=== PATIENT | female | born 1990 | race African-American/Black ===

== ENCOUNTER 2017-02-07 13:33 | Outpatient (CLI) | payer BC ==
[~2017-02-07] VITALS: Ht 167.6 cm; Wt 116.3 kg
[2017-02-07] MEDS ORDERED: ACETAMINOPHEN 500 MG TABLET PO ONE (14:15)
[2017-02-07] MEDS ORDERED: LR 1,000 ML IV SCH ×2 (14:15→15:15)
[2017-02-07 14:22] LABS: INFLUENZA A AG SCREEN NEGATIVE (NEGATIVE); INFLUENZA B AG SCREEN NEGATIVE (NEGATIVE)
[2017-02-07 14:32] VITALS: Ht 167.6 cm; Wt 116.3 kg
[2017-02-07 14:41] VITALS: BP 146/94; PULSE 106; RESP 16; TEMP 98.8; O2SAT 97
== END 2017-02-07 18:00 | disposition home or self-care (01) ==
LOC: INF.THER 13:33
PROVIDERS: ATTEND Obstetrics & Gynecology
DX: E86.0 Dehydration (principal)
CPT/HCPCS: 87400; J7120

== ENCOUNTER 2017-03-14 09:03 | Inpatient (IN) | payer BC ==
[~2017-03-14] VITALS: Ht 167.6 cm; Wt 118.1 kg
[~2017-03-14 09:03] MED LIST: PREN1TAB73 PO
[2017-03-14] MEDS ORDERED: LR 1,000 ML IV PRN (09:25)
[2017-03-14] MEDS ORDERED: LIDOCAINE 1% (10mg/ml) 2ml SDV ID PRN (09:30)
[2017-03-14] MEDS ORDERED: MAG-AL + SIM LIQUID 30 ML UDC PO PRN (09:30)
[2017-03-14] MEDS ORDERED: ACETAMINOPHEN 500 MG TABLET PO PRN (09:30)
[2017-03-14] MEDS ORDERED: CALCIUM CARBONATE 500mg Chewable TAB PO PRN (09:30)
[2017-03-14 09:40] LABS: HCT - HEMATOCRIT 40.3 % (36-46); HGB - HEMOGLOBIN 13.1 GM/DL (12-16); MEAN CORPUSCULAR HGB 28.1 UUG (26-34); MEAN CORPUSCULAR HGB CONC(MCHC 32.5 GM/DL (31-37); MEAN CORPUSCULAR VOLUME 86.5 UM3 (80-100); MEAN PLATELET VOLUME 11.1 UM3 (9.4-12.4); RED BLOOD COUNT 4.66 M/MM3 (4.00-5.20); WBC - WHITE BLOOD COUNT 14.9 T/MM3 (4.5-11.0)
[2017-03-14 10:20] VITALS: BP 135/66; PULSE 92; RESP 18
[2017-03-14] MEDS ORDERED: OXYTOCIN 30 UNIT in D5W 500 ML IV ONE (10:57)
[2017-03-14] MEDS ORDERED: MILK OF MAGNESIA 30 ML SUSP PO PRN (11:00)
[2017-03-14] MEDS ORDERED: DiphenhydrAMINE 25 MG CAPSULE PO PRN (11:00)
[2017-03-14] MEDS ORDERED: PHENYLEPHRINE RECTAL SUPPOSITORY RECTALLY PRN (11:00)
[2017-03-14] MEDS ORDERED: HYDROCORTISONE 2.5% CREAM 30 GM RECTALLY PRN (11:00)
[2017-03-14] MEDS ORDERED: ROPIVACAINE 1% 200 MG, SUFENTANIL 50 MCG in NORMAL SALINE 80 ML EPI ONE (12:00)
[2017-03-14] MEDS: IBUPROFEN 800 MG TABLET PO PRN (15:10)
[2017-03-14] MEDS: HYDROCODONE/APAP 5 mg/325 mg TABLET PO PRN ×2 (15:11→20:14)
[2017-03-14 15:20] VITALS: BP 124/70; PULSE 92; RESP 18; TEMP 98.2
[2017-03-14 17:54] VITALS: BP 135/67; PULSE 86; RESP 18; TEMP 98.3; O2SAT 97
--- NOTE | 2017-03-14 20:46 | LDNF ---
DATE 03/14/2017 Claudia is a 26-year-old 2, para 1 at 37 weeks 5 days gestational age who presented to Maternal/Child with complaints of contractions. She was found to be completely dilated with a bulging bag. However, she was able to sit still for an epidural. She was allowed to labor down. Her membranes were then ruptured artificially returning clear fluids. She only had to push with two contractions and had a spontaneous vaginal delivery of a viable male infant, Apgars 8/9, weight 3084 grams, name "Jordon". Baby was vigorous after delivery so he was placed on mom's abdomen. The cord clamping was delayed for more than two minutes. The placenta was not delivering easily. With minimal cord traction, the cord avulsed so it had to be manually removed. The uterus then contracted down well. There were no lacerations. Mom and baby tolerated the delivery well. MTDD
--- NOTE | 2017-03-15 00:55 | NUR ---
Chart Check 24 hour chart check completed
--- NOTE | 2017-03-15 00:55 | NUR ---
Shift Summary Pt's VS stable. Fundus firm, minimal lochia, and voiding w/o difficulty. Pt showered on this shift. Pain controlled with po pain meds as ordered, Motrin and [place]. Pt tolerating po fluids and regular diet. Pt performing cares for self and baby with help of FOB at bedside. Pt up ad chace in room and MC unit. Pt attentive to needs and bonding appropriately. Call jacobs in reach. Will continue to monitor per plan of care.
[2017-03-15] MEDS: HYDROCODONE/APAP 5 mg/325 mg TABLET PO PRN ×2 (01:12→10:54)
[2017-03-15] MEDS: IBUPROFEN 800 MG TABLET PO PRN ×2 (01:12→10:54)
[2017-03-15 01:15] VITALS: BP 123/77; PULSE 75; RESP 18; TEMP 97.7; O2SAT 96
[2017-03-15 07:15] VITALS: BP 130/80; PULSE 74; RESP 18; TEMP 97.8; O2SAT 96
--- NOTE | 2017-03-15 07:19 | ANESPO ---
Post-Op Note Date 03/15/17 Time: 07:15 Status Pt Participated in Evaluation: Pt participated in person Vital Signs Date Time Temp Pulse Resp B/P Pulse Ox O2 Delivery O2 Flow Rate FiO2 03/15/17 07:15 97.8 74 18 130/80 96 Room Air Respiratory Function: Airway patent, Regular respirations Cardiovascular Function: Regular pulse Mental Status: Alert/oriented Pain Level Intensity: 0 Hydration: Taking po fluids Complications during Recovery None apparent Follow-Up Instructions Instructions Per Surgeon TIAN NUNEZ CRNA Mar 15, 2017 07:19
--- NOTE | 2017-03-15 08:33 | PNPDOC ---
Progress Note PPD1 Rubella: Immune GBS: Neg Blood Type:B pos Subjective 03/15/17 Lochia: Minimal Pain: Controlled Voiding: Voiding Objective Vital Signs Date Time Temp Pulse Resp B/P Pulse Ox O2 Delivery O2 Flow Rate FiO2 03/15/17 07:15 97.8 74 18 130/80 96 Room Air Urine Output: Good General: Alert and Oriented Abdomen: Fundus Firm, Non-tender Extremities: Non-tender Assessment (1) (spontaneous vaginal delivery) Plan: Routine Care, Discharge Home, Continue PNV FAUSTINO MOSLEY MD Mar 15, 2017 08:33
[2017-03-15] MEDS ORDERED: HYDR-4246 PO (08:35)
[2017-03-15] MEDS ORDERED: IBUP-1547 PO (08:35)
[2017-03-15] MEDS ORDERED: DOCUSATE CALCIUM 240 MG CAPSULE PO SCH (09:00)
== END 2017-03-15 14:15 | disposition home or self-care (01) | DRG 767 ==
LOC: MC 09:03
PROVIDERS: ADMIT Obstetrics & Gynecology; ATTEND Obstetrics & Gynecology
PROC: 10E0XZZ Delivery of Products of Conception, External Approach (ICD-10-PCS; principal; 2017-03-14)
PROC: 10D17ZZ Extraction of Products of Conception, Retained, Via Natural or Artificial Opening (ICD-10-PCS; 2017-03-14)
PROC: 10907ZC Drainage of Amniotic Fluid, Therapeutic from Products of Conception, Via Natural or Artificial Opening (ICD-10-PCS; 2017-03-14)
DX: O32.8XX0 Maternal care for other malpresentation of fetus, not applicable or unspecified (principal); O43.893 Other placental disorders, third trimester; O69.89X0 Labor and delivery complicated by other cord complications, not applicable or unspecified; O99.334 Smoking (tobacco) complicating childbirth; F17.210 Nicotine dependence, cigarettes, uncomplicated; O99.52 Diseases of the respiratory system complicating childbirth; J45.909 Unspecified asthma, uncomplicated; Z3A.37 37 weeks gestation of pregnancy; Z37.0 Single live birth
CPT/HCPCS: 85027; 86850; 86900; 86901